=== PATIENT | male | born 1975 | race Caucasian/White ===

== ENCOUNTER 2022-01-30 23:07 | Emergency (ER) | payer OTHER ==
[~2022-01-30] VITALS: Ht 180.3 cm; Wt 90.7 kg
== END 2022-01-30 23:55 | disposition home or self-care (01) ==
LOC: ER 23:07
DX: S61.412A Laceration without foreign body of left hand, initial encounter (principal); Z23 Encounter for immunization; W01.0XXA Fall on same level from slipping, tripping and stumbling without subsequent striking against object, initial encounter; Y93.02 Activity, running; Y92.9 Unspecified place or not applicable
CPT/HCPCS: 12001; 90471; 90714; 99282-25